=== PATIENT | female | born 1950 | race Caucasian/White ===

== ENCOUNTER 2022-12-06 10:10 | Day surgery (SDC) | payer MEDICARE, OTHER, SELFPAY ==
[2022-12-06] VITALS (10 sets, daily range): BP systolic 106–165; BP diastolic 59–89; PULSE 63–77; RESP 18–77; O2SAT 97–100; BMI 23.7
--- NOTE | 2022-12-06 07:10 | IR_ITS ---
APPROVED REPORT Patient Location: Outpatient Rodent Exterminator: AMADEO Givens RT (R) PROCEDURES Catheter placement in the celiac artery Selective angiogram of the celiac artery Catheter placement in the superior mesenteric artery Superior mesenteric artery angiogram Intravascular ultrasound to the celiac artery Bilateral selective renal angiography INDICATION SMA occlusion, Mesenteric ischemia symptoms, Hypertension suspect renal artery stenosis, Angiographic ambiguity of the celiac artery Informed consent was obtained prior to the procedure. COMPLICATIONS None Estimated Blood Loss: Less than 10 ml TECHNIQUE One percent lidocaine used to anesthetize the right anterior aspect of the wrist. The right radial artery was accessed via the Seldinger technique. A 6 Upper Sorbian sheath was placed in the right radial artery. 2.5 mg of Verapamil, 800 mcg of nitroglycerin, 1mg Lidocaine and 5000 U Heparin were given through the arterial sheath. The papa catheter was also used to perform selective engagement of the celiac artery. The same catheter was used to perform selective engagement of the superior mesenteric artery. A 20 mm gradient was identified in the celiac artery and the ostium could not be adequately laid out angiographically. Because of this therapeutic Was administered with therapeutic ACT and the guide catheter was placed in the celiac artery followed by Choice PT extra-support wire. Intravascular ultrasound probe was advanced which demonstrated wide patency of the celiac artery with no stenosis greater than 10 to 20%. Following intravascular ultrasound probe a longer Poppa guide catheter was used to perform bilateral selective femoral angiography. At the end of the procedure the apparatus was removed the sheath was removed and hemostasis was achieved using TR banding patient was transferred the postop putting in stable addition ANGIOGRAPHIC RESULTS Celiac artery has an ostial 10 to 20% stenosis Superior mesenteric arteries widely patent and angiographically normal in the ostial proximal segment Right renal artery is singular normal Left renal artery has a dual arterial supply with both vessels being normal IMPRESSION Nonflow limiting celiac artery stenosis Widely patent superior mesenteric artery Widely patent renal arteries PLAN 1. Evaluation of nonvascular/ischemic etiologies Electronically signed by : Americo Joshua MD 12/06/2022 13:41:39
[2022-12-06 10:42] LABS: Basophils % 0.3 % (0.1-2.0); Eosinophils # 0.1 K/mm3 (0.0-0.4); Eosinophils % 1.2 % (0.1-12.0); Hematocrit 35.3 % (37.0-47.0); Hemoglobin 11.9 g/dL (12.2-16.2); Lymphocytes # 1.1 K/mm3 (0.7-4.5); Lymphocytes % 29.7 % (10-50); Mean Corpuscular HGB Conc 33.6 g/dL (31.8-35.4); Mean Corpuscular Hemoglobin 30.8 pg (27.0-31.2); Mean Corpuscular Volume 91.8 fl (81-99); Mean Platelet Volume 9.6 fl (7.4-10.4); Monocytes # 0.3 K/mm3 (0.1-1.0); Monocytes % 8.2 % (1.7-9.3); Neutrophils # 2.3 K/mm3 (1.8-7.8); Neutrophils % 60.6 % (37.0-80.0); Platelet Count 188 K/mm3 (142-424); Red Blood Count 3.85 M/mm3 (4.20-5.40); Red Cell Distribution Width 13.2 % (11.5-17.5); White Blood Count 3.8 K/mm3 (4.8-10.8)
[2022-12-06 10:51] LABS: Anion Gap 11.9 mEq/L (5-15); Blood Urea Nitrogen 19 mg/dl (7-17); Calcium 10.1 mg/dl (8.4-10.2); Carbon Dioxide 29 mmol/L (22.0-30.0); Chloride 102 mmol/L (98-107); Creatinine Clearance Estimated 53 mL/min (50-200); Estimated Glomerular Filt Rate 70 ml/min (>60); GFR (African American) 85 ML/MIN (>60); Glucose 94 mg/dl (74-100); Potassium 3.9 mmoL/L (3.5-5.1); Sodium 139 mmol/L (136-145)
== END 2022-12-06 15:30 | disposition home or self-care (01) ==
PROVIDERS: PCP Family Medicine; Visit Provider Internal Medicine
DX: I77.1 Stricture of artery (principal); K55.1 Chronic vascular disorders of intestine; I10 Essential (primary) hypertension; R06.00 Dyspnea, unspecified; R11.10 Vomiting, unspecified; R63.4 Abnormal weight loss; R68.81 Early satiety; R93.5 Abnormal findings on diagnostic imaging of other abdominal regions, including retroperitoneum; Z87.448 Personal history of other diseases of urinary system; Z79.899 Other long term (current) drug therapy; K55.069 Acute infarction of intestine, part and extent unspecified; I70.1 Atherosclerosis of renal artery
CPT/HCPCS: 36247; 36252; 36415; 75726; 80048; 85025; 99152; C1725; C1769; J1644; Q9967

== ENCOUNTER → 2022-12-20 07:24 | Outpatient (CLI) | payer MEDICARE, OTHER, SELFPAY ==
--- NOTE | 2022-12-20 | CA_ITS ---
APPROVED REPORT Exam: Pharmacologic Technologist: Tamiko Lindsay, Ht: 5 ft 6 in Wt: 143 lbs BSA: 1.73 m2 HR: 65 bpm BP: 152/68 mmHg Rhythm: NSR Medical History Medications: Levothyroxine,,,,, Aspirin,,,,, Losartan,,,,, Hydrochlorothiazide,,,,, Montelukast,,,,, MiraLAX,,,,, RoSUVASTATIN,,,,, Vitamin D3, B12,,,,, Stress Test Details Test: LEXISCAN Reason for pharmacologic stress test: physical limitation. HR Resting HR: 69 bpm Max Heart Rate (APMHR): 147 bpm Max HR Achieved: 95 bpm Target HR (85% APMHR): 125 bpm % of APMHR: 65 Recovery HR: 82 bpm BP Resting BP: 152.0/68.0 mmHg Max BP: 153.0/68.0 mmHg Recovery BP: 139.0/74.0 mmHg ECG Resting ECG: NSR Stress ECG: No significant ST changes Arrhythmia: None Clinical Exercise duration: 04:00 min Highest Stage Achieved: Exercise capacity: 1.0 METs Stress ECG Conclusion Symptoms: Stomach cramps. No CP. Arrhythmias/Ectopy: None ST-T Changes: No significant ST changes. Conclusion: Unremarkable Lexiscan stress. Myoveiw images reported separately. Test Summary REST . . . . . . . Resting REST 03:43 . . 69 . 152/ 68 . . Stage 1 . . . . . . . Myoview Injected Stage 1 01:00 . . 91 . . . . Stage 2 01:00 . . 92 . 153/ 68 . . Stage 3 01:00 . . 89 . 143/ 68 . . Stage 4 01:00 . . 85 . 133/ 70 . Stop exercise at 04:00 RECOVERY 01:00 . . 83 . 139/ 63 . . RECOVERY 02:00 . . 84 . 139/ 63 . . RECOVERY 03:00 . . 82 . 141/ 70 . . RECOVERY 03:53 . . 75 . 139/ 74 . . Electronically signed by : Lachelle Calabrese MD 12/26/2022 14:12:08
--- NOTE | 2022-12-20 08:02 | NM_ITS ---
APPROVED REPORT Exam: Nuclear Stress Test Indication: chest pain..soa Patient Location: Outpatient Stress Tech: Tamiko Arreguin ME Tech:Leola Ramírez AMADEO RT(R)(N) Ht: 5 ft 6 in Wt: 143 lbs Bra Size: 38c HR: 69 bpm BP: 152/68 mmHg BSA: 1.73 m2 Rhythm: NSR TID: 1.00 BMI: 23.0 History: chest pain..soa Procedure: Patient received 0.4 mg of intravenous Lexiscan, resting heart rate 69 bpm, resting blood pressure 152/68 mmHg, with Lexiscan maximum heart rate achieved was 95 bpm which is 85 % of the maximum predicted heart rate and blood pressure was 153/68 mmHg. With Lexiscan, patient denied any complaint of chest pain. Cardiac Stress and Resting SPECT Images: Cardiac Stress and Resting SPECT images were obtained using technetium 99m Myoview 31.8 mCi stress and 9.60 mCi at rest. Resting and stress imaging in supine position demonstrate a medium sized, moderate, fixed perfusion defect in the basal inferior LV wall. This is no longer visualized with prone stress imaging. Findings are suggestive of diaphragmatic attenuation. Gated imaging demonstrates normal global and regional LV systolic function. LVEF is calculated at 56%. Conclusion: Diaphragmatic attenuation is present. No definite evidence of fixed or reversible perfusion defects. Gated imaging demonstrates normal global and regional LV systolic function. LVEF is calculated at 56%. Electronically signed by : Lachelle Calabrese MD 12/26/2022 14:13:42
== END ==
PROVIDERS: PCP Family Medicine; Visit Provider Nurse Practitioner
DX: R06.09 Other forms of dyspnea (principal); R07.9 Chest pain, unspecified; R60.0 Localized edema; R94.39 Abnormal result of other cardiovascular function study
CPT/HCPCS: 78452; 93017; 93018; A9502; J2785

== ENCOUNTER → 2022-12-28 09:30 | Outpatient (CLI) | payer MEDICARE, OTHER, SELFPAY ==
--- NOTE | 2022-12-28 09:33 | CA_ITS ---
APPROVED REPORT EXAM: Comprehensive 2D, Doppler, and color-flow Echocardiogram Shift Supervisor Film Processing: Christie Sears RT(R) Ht: 5 ft 6 in Wt: 143lbs BSA: 1.73 BP: 155/83 mmHg Indications: CP, edema, SOB, normal EF on GXT 12/20/22 M-Mode Dimensions RVDd 3.09 cm (0.9-2.6) LVDd 4.44 cm (3.5-5.7) LVDs 2.09 cm (3.5-5.7) IVSd 1.04 cm (0.6-1.1) PWd 0.80 cm (0.6-1.1) EF (Teich) 84.20% FS 52.90% EDV (Teich) 89.60 mL ESV (Teich) 14.20 mL LV Diastology E/A Ratio 1.04 Mitral Valve MV A Velocity 67.00 (40-130 cm/s) Left Ventricle The left ventricle is normal size. The left ventricular systolic function is normal. The left ventricular ejection fraction is within the normal range. There is increased LV wall thickness. There is normal LV segmental wall motion. The left ventricular diastolic function is normal. LVEF is 55%. Right Ventricle The right ventricle is normal size. The right ventricular systolic function is normal. Atria The left atrium size is normal. The right atrium size is normal. There is no Doppler of interatrial shunt. Aortic Valve The aortic valve leaflets are mildly thickened. There is no aortic valvular stenosis. Trace aortic regurgitation. Mitral Valve The mitral valve leaflets are thin and pliable. No evidence of mitral valve stenosis. Mild mitral regurgitation. Tricuspid Valve The tricuspid valve leaflets are thin and pliable. Mild tricuspid regurgitation. RVSP is normal. Pulmonic Valve The pulmonary valve is normal in structure. Mild pulmonic regurgitation. Great Vessels The aortic root is normal in size. The ascending aorta is normal in size. IVC is normal in size and collapses >50% with inspiration. Pericardium There is no pericardial effusion. Other Information Study Quality: Fair Conclusion Normal biventricular systolic function. Mild MR, mild TR. Electronically signed by : Lachelle Calabrese MD 01/01/2023 19:13:09
== END ==
PROVIDERS: PCP Family Medicine; Visit Provider Nurse Practitioner
DX: R07.9 Chest pain, unspecified; R60.0 Localized edema; R94.39 Abnormal result of other cardiovascular function study; R06.09 Other forms of dyspnea
CPT/HCPCS: 93306